=== PATIENT | female | born 1995 | race Caucasian/White ===

== ENCOUNTER 2017-06-06 22:24 | Emergency (ER) | payer OTHER ==
[~2017-06-06] VITALS: Ht 160 cm; Wt 52.0 kg
[2017-06-06 22:26] VITALS: BP 119/82
[2017-06-06] MEDS ORDERED: ONDANSETRON 2MG/ML, 2ML ONE (23:29)
[2017-06-06] MEDS ORDERED: MORPHINE SULFATE 4 MG/ML, 1ML ONE (23:29)
[2017-06-06] MEDS ORDERED: MORPHINE SULFATE 4 MG/ML, 1ML IVPush PRN (23:30)
[2017-06-06] MEDS ORDERED: ONDANSETRON 2MG/ML, 2ML IVPush ONE (23:30)
== END 2017-06-06 23:59 | disposition home or self-care (01) ==
LOC: ED 23:45
DX: N83.01 Follicular cyst of right ovary (principal)
CPT/HCPCS: 96374; 96375; 99284; J2405